=== PATIENT | male | born 1990 | race Caucasian/White ===

== ENCOUNTER 2016-11-16 20:40 | Emergency (ER) | payer BC, OTHER ==
[2016-11-16 20:52] VITALS: TEMP 97.5
[2016-11-16] MEDS ORDERED: ONDANSETRON 4 MG/2 ML VIAL IVP ONE (21:03)
[2016-11-16] MEDS ORDERED: fentaNYL 100 MCG/2 ML INJ IVP ONE (21:03)
[2016-11-16] MEDS ORDERED: NS 1,000 ML IV ONE (21:03)
--- NOTE | 2016-11-16 21:07 | EDPHY ---
H & P Stated Complaint: fell down stairs, R ankle injury Source: Patient, Family - Personal History Current Tetanus/Diphtheria Vaccine: Unsure Current Tetanus Diphtheria and Acellular Pertussis (TDAP): Unsure - Medical/Surgical History Hx Asthma: No Hx Chronic Respiratory Disease: No Hx Diabetes: No Hx Cardiac Disease: No Hx Renal Disease: No Hx Cirrhosis: No Hx Alcoholism: No Hx HIV/AIDS: No Hx Splenectomy or Spleen Trauma: No Other PMH: denies - Social History Smoking Status: Never smoked HPI/ROS: CHIEF COMPLAINT: Fall, ankle pain HISTORY OF PRESENT ILLNESS: Patient was running on some carpet immediately prior to arrival he slipped, sliding down 2 stairs. Does not recall exactly what happened but he landed awkwardly on his ankle. He notes sudden onset of pain and deformity to the right ankle. Has no head injury or loss of conscious. No chest or back pain. No abdominal injuries. No injuries to the arms of the left leg. The pain is severe, 10/10. Radiates into the rest of the ankle. No pain in the ipsilateral heel, knee or hip. No other associated complaints or modifying factors. Last intake by mouth with 7:30 p.m. full meal PRIOR ORTHO INJURIES: None ESTABLISHED ORTHOPEDIST: None REVIEW OF SYSTEMS: Ten systems reviewed and are negative unless otherwise noted in the HPI EXAMINATION General Appearance: Alert, no distress Cardiovascular: Pulses normal throughout. Symmetric DP pulses are 2+. Brisk cap refill Neurological: A&O, sensory symmetric. Strength not tested in the right ankle deformity. Skin: Warm and dry, no rash. No lacerations or abrasions. Extremities: Significant tenderness to palpation of the right medial ankle. There is deformity of the ankle mortise. No tenderness of the right midfoot or calcaneus. Range of motion not tested due to deformity Psychiatric: Mood and affect normal DIFFERENTIAL DIAGNOSES: Including but not limited to fracture, fracture dislocation, sprain, strain MDM: 9:04 p.m. Mechanical fall with acute right ankle injury with deformity. DP pulse is palpable 2+. No injury to the remainder of the extremity. Replacing IV access , pain medication and x-ray. No injuries elsewhere on the person 9:10 p.m. I have viewed the x-ray on the Mobile apparatus. On this limited view, there appears to be a trimalleolar fracture. 9:35 p.m. X-ray has been read by radiologist as a bimalleolar fracture with disruption of the tibiotalar joint. I have discussed the case with the on-call orthopedist, Breann FRANKLIN. She has reviewed the x-ray while on the phone today. She recommends that we attempt reduction, place him in a splint, make him nonweightbearing, and she would like to see him in the clinic on Sunday. 10:20 p.m. Patient underwent procedural sedation and closed reduction of the ankle without complication. Postprocedure film is pending at this time. He remains neurovascular intact in a posterior splint with stirrup. 10:40 p.m. Patient is awake, conversing appropriately in laughing. His pain is tolerated. He is in a splint remains neurovascular intact with DP pulses 2+. We discuss his outpatient management with Orthopedics. We discussed return to the emergency department precautions. He is to remain strictly nonweightbearing on that extremity. He voices understanding of this. He is discharged home in stable condition with orthopedic follow-up. PROCEDURE: Closed reduction of right ankle fracture dislocation Consent: Verbal and written Location: Right ankle Anesthesia: Procedural sedation by Dr. Correa Procedure: After time-out, procedural sedation was administered. Please see Dr. Correa note. After adequate sedation, axial traction was applied to the ankle with successful reduction of the ankle mortise. Ankle was held in traction while the posterior splint with stirrup were placed due to instability of the joint. He remained neurovascular intact post procedure with 2+ DP pulse and brisk cap refill to the toes. Tolerated well. Complications: None Post-reduction film: By my interpretation shows improved alignment ED Precautions: Worsening pain. Erythema, edema, cyanosis, pallor, paresthesia or anesthesia. SUPERVISION: Patient was evaluated in conjunction with the supervising physician. Please see their note for details. (Elias Block) Constitutional: Initial Vital Signs Temperature (C) 97.5 F 11/16/16 20:51 Heart Rate 61 11/16/16 20:51 Respiratory Rate 17 11/16/16 20:51 Blood Pressure 128/77 H 11/16/16 20:51 O2 Sat (%) 99 11/16/16 20:51 O2 Delivery Mode Room Air Allergies/Adverse Reactions: No Known Allergies Allergy (Unverified 11/16/16 20:50) Home Medications: Medication Instructions Recorded oxyCODONE HCL/ACETAMINOPHEN 1 each PO Q6 PRN #20 tablet 11/16/16 [Percocet 7.5-325 mg Tablet] Medical Decision Making - Diagnostics Imaging Results: Imaging Impressions Ankle X-Ray 11/16/16 21:02 Impression: Fracture/dislocation of distal fibula and tibia, with disruption of the tibiotalar joint. Ankle X-Ray 11/16/16 22:15 Impression: Unstable fracture/subluxation of distal tibia and fibula. Improvement in positions after splinting. Other Provider: 22:05 Procedure: Conscious sedation. Indication: Fracture reduction The patient is an appropriate candidate to tolerate procedural sedation. The patient's vitals signs and mental status are appropriate. The risks, benefits and alternatives of the sedation were discussed with the patient. The patient is ASA classification 1. The patient's Mallampati airway score was 1 and the patient did meet the 3-3- 2 airway measurements. A time out was completed. The patient was sedated with 70mg IV propofol. The patient was monitored with continuous pulse oximetry, bus driver/monitor and end tidal CO2. There were no complications and no significant hypoxemia. I performed the sedation and RIGOBERTO Block performed the procedure. The total time I spent at the bedside during the procedural sedation was 10 minutes. The patient was examined after the procedural sedation and has returned to their pre-sedation baseline with normal vital signs and a normal examination. (Francis Correa) - Data Points Medications Given: Discontinued Medications Fentanyl (Sublimaze) 100 mcg IVP EDNOW ONE Stop: 11/16/16 21:04 Last Admin: 11/16/16 21:15 Dose: 100 mcg Hydromorphone HCl (Dilaudid) 1 mg IVP EDNOW ONE Stop: 11/16/16 21:49 Last Admin: 11/16/16 21:48 Dose: 1 mg Sodium Chloride (Ns) 1,000 mls @ 0 mls/hr IV ONCE ONE PRN Reason: Wide Open Stop: 11/16/16 21:04 Last Admin: 11/16/16 21:15 Dose: 1,000 mls Ondansetron HCl (Zofran) 4 mg IVP EDNOW ONE Stop: 11/16/16 21:04 Last Admin: 11/16/16 21:15 Dose: 4 mg Propofol (Diprivan) 70 mg IVP EDNOW ONE Stop: 11/16/16 22:01 Last Admin: 11/16/16 22:00 Dose: 70 mg Departure - Departure Disposition: Home, Routine, Self-Care Clinical Impression: Bimalleolar ankle fracture Qualifiers: Encounter type: initial encounter Fracture type: closed Laterality: right Qualified Code(s): S82.841A - Displaced bimalleolar fracture of right lower leg , initial encounter for closed fracture Ankle dislocation Qualifiers: Encounter type: initial encounter Laterality: right Qualified Code(s): S93.04XA - Dislocation of right ankle joint, initial encounter Condition: Good Instructions: Oxycodone/Acetaminophen (By mouth), Ankle Fracture (ED), Ankle Dislocation (ED) Additional Instructions: Nonweightbearing on the right lower extremity. Follow up with orthopedics Dr. barrera early next week. Contact their office Sunday morning. Return to the ER for worsening pain, numbness, tingling, pallor or cyanosis Referrals: NONE *PRIMARY CARE P,. [Primary Care Provider] - As per Instructions Doni Barrera MD [Medical Doctor] - As per Instructions Stand Alone Forms: Work Excuse Prescriptions: oxyCODONE HCL/ACETAMINOPHEN [Percocet 7.5-325 mg Tablet] 1 each PO Q6 PRN #20 tablet PRN Reason: Pain, Mild
[2016-11-16] MEDS ORDERED: HYDROmorphONE/DILAUDID 1 MG/ML SYR ONE (21:43)
[2016-11-16] MEDS ORDERED: HYDROmorphONE/DILAUDID 1 MG/ML SYR IVP ONE (21:48)
[2016-11-16] MEDS ORDERED: PROPOFOL 200 MG/20 ML VIAL IVP ONE ×2 (22:00)
[2016-11-16] MEDS ORDERED: PROPOFOL 200 MG/20 ML VIAL ONE (22:04)
[2016-11-16] MEDS ORDERED: OXYCODONE/APAP 5/325MG PREPACK#4 BTL TAKEHOME ONE (22:41)
[2016-11-16 22:53] VITALS: RESP 16
[2016-11-16 23:13] VITALS: BP 128/74; PULSE 98; O2SAT 94
== END 2016-11-16 23:08 | disposition home or self-care (01) ==
PROC: 0QSGXZZ Reposition Right Tibia, External Approach (ICD-10-PCS; principal; 2016-11-16)
DX: S82.841A Displaced bimalleolar fracture of right lower leg, initial encounter for closed fracture (principal); S93.04XA Dislocation of right ankle joint, initial encounter; W10.9XXA Fall (on) (from) unspecified stairs and steps, initial encounter; Y99.8 Other external cause status; Y93.02 Activity, running
CPT/HCPCS: 96374; J1170; J2405; J2704; J3010